=== PATIENT | female | born 1960 | race Caucasian/White ===

== ENCOUNTER 2018-07-17 06:41 | Emergency (ER) | payer MEDICAID ==
[2018-07-17 06:55] VITALS: O2SAT 98
[2018-07-17 09:46] VITALS: BP 133/87; PULSE 84; RESP 18; TEMP 99.6
--- NOTE | 2018-07-17 09:49 | C.PDOC ---
History Of Present Illness 58 year old female presents to the ED complaining of cough, nasal congestion, rhinorrhea, fever and bodyaches for one day. Denies any nausea, vomiting, chest pain or shortness of breath. Denies any sick contacts or recent travels. HPI: Influenza Time Seen by Provider: 07/17/18 07:18 Chief Complaint: Flu-like Symptoms History Per: Patient Exam Limitations: no limitations Have you had recent travel within the past 21 days to any of the following countries: [place], [place], [place] or [place]?: No Onset/Duration Of Symptoms: Days (1) Symptoms include: fever, headache, bodyaches, cough, nasal congestion. denies: diarrhea, chest pain Sick Contacts (Context): None Past Medical History Reviewed: Historical Data, Nursing Documentation, Vital Signs Vital Signs: Last Vital Signs Temp 99.9 F H 07/17/18 06:51 Pulse 104 H 07/17/18 06:51 Resp 20 07/17/18 06:51 BP 152/85 H 07/17/18 06:51 Pulse Ox 98 07/17/18 06:51 - Medical History PMH: Hypercholesterolemia Surgical History: Cholecystectomy Family History: States: No Known Family Hx - Social History Hx Alcohol Use: No Hx Substance Use: No - Immunization History Hx Tetanus Toxoid Vaccination: No Hx Influenza Vaccination: No Hx Pneumococcal Vaccination: No Review Of Systems Except As Marked, All Systems Reviewed And Found Negative. Constitutional: Positive for: Fever, Other (myalgias ) ENT: Positive for: Nose Discharge, Nose Congestion. Negative for: Ear Pain, Throat Pain Cardiovascular: Negative for: Chest Pain Respiratory: Positive for: Cough. Negative for: Shortness of Breath Gastrointestinal: Negative for: Nausea, Vomiting, Abdominal Pain, Diarrhea Physical Exam - Physical Exam Appears: Non-toxic, No Acute Distress Skin: Warm, Dry, No Rash Head: Normacephalic Eye(s): bilateral: Normal Inspection Ear(s): Bilateral: Normal Nose: Normal Oral Mucosa: Moist Tongue: Normal Appearing Lips: Normal Appearing Teeth: Normal Dentition Gingiva: Normal Appearing Throat: Normal, No Erythema, No Exudate Neck: Supple Chest: Symmetrical Cardiovascular: Rhythm Regular Respiratory: Normal Breath Sounds, No Rales, No Rhonchi, No Wheezing Gastrointestinal/Abdominal: Soft, No Tenderness Neurological/Psych: Oriented x3, Normal Speech Gait: Steady - ECG O2 Sat by Pulse Oximetry: 98 (RA) Pulse Ox Interpretation: Normal - Radiology X-Ray: Viewed By Me, Read By Radiologist X-Ray Interpretation: No Acute Disease - Progress ED Course And Treament: CXR ordered and reviewed - no pulmonary disease. Influenze A B stat ordered - negative, however s/s very suspicious to Influenza. Patient treated with Tamiflu 75mg PO and is stable to be d/c home with PMD follow up. Condition: Improved Disposition - Disposition Referrals: Betzy Aguilar [Medical Doctor] - Disposition: HOME/ ROUTINE Disposition Time: 09:45 Condition: STABLE Additional Instructions: Follow up with PMD within 1-2 days. Return to ED if feel worse. Prescriptions: Fluticasone Propionate [Flonase] 1 spr NS BID #1 spr Ibuprofen [Motrin Tab] 400 mg PO Q8 #30 tab Oseltamivir Cap [Tamiflu] 75 mg PO BID #9 cap Benzonatate [Tessalon Perles] 2 tab PO TID #60 sgl Instructions: Flu, Adult (DC) Forms: Certain (Gabonese) Print Language: FIJIAN - Clinical Impression Clinical Impression: Influenza-like illness - PA / VERIFICATION MANAGER / Resident Statement MD/DO has reviewed & agrees with the documentation as recorded. - Scribe Statement The provider has reviewed the documentation as recorded by the Scribe Spring Gordon All medical record entries made by the Wangibe were at my direction and persona lly dictated by me. I have reviewed the chart and agree that the record accurately reflects my personal performance of the history, physical exam, medical decision making, and the department course for this patient. I have also personally directed, reviewed, and agree with the discharge instructions and disposition.
--- NOTE | 2018-07-17 10:12 | RAD ---
Date of service: 07/17/2018 HISTORY: Fever and cough COMPARISON: No prior. TECHNIQUE: Chest PA and lateral FINDINGS: LINES AND TUBES: None. LUNG AND PLEURA: The lungs are well inflated and clear. No pleural effusion or pneumothorax. HEART AND MEDIASTINUM: The heart is not enlarged. No aortic atherosclerotic calcifications present. The hilar and mediastinal contours are within normal limits. SKELETAL STRUCTURES: The bony structures are within normal limits for the patient's age. VISUALIZED UPPER ABDOMEN: Normal. OTHER FINDINGS: None. IMPRESSION: No active pulmonary disease.
== END 2018-07-17 10:15 | disposition home or self-care (01) ==
LOC: C.ER 06:41
DX: J11.1 Influenza due to unidentified influenza virus with other respiratory manifestations (principal)

== ENCOUNTER 2018-07-17 13:49 | Emergency (ER) | payer MEDICAID, MEDICARE ==
[2018-07-17 14:08] VITALS: BP 124/84; PULSE 102; RESP 18; TEMP 99.1; O2SAT 95
--- NOTE | 2018-07-17 15:34 | C.PDOC ---
History Of Present Illness 58 year old female presents to the emergency department requesting a prescription for different medication. Patient was seen earlier in the ED today where she was given a prescription for Tamiflu and Tessalon Perles. Patient states that she took one tablet of Tessalon Perles and vomited, and states that she went to 5 pharmacies and none of them had Tamiflu. Chief Complaint (Nursing): Medical Clearance History Per: Patient History/Exam Limitations: no limitations Onset/Duration Of Symptoms: Hrs Current Symptoms Are (Timing): Still Present Past Medical History Reviewed: Historical Data, Nursing Documentation, Vital Signs Vital Signs: Last Vital Signs Temp 99.1 F 07/17/18 14:04 Pulse 102 H 07/17/18 14:04 Resp 18 07/17/18 14:04 BP 124/84 07/17/18 14:04 Pulse Ox 95 07/17/18 14:04 - Medical History PMH: Hypercholesterolemia Surgical History: Cholecystectomy Family History: States: No Known Family Hx - Social History Hx Alcohol Use: No Hx Substance Use: No - Immunization History Hx Tetanus Toxoid Vaccination: No Hx Influenza Vaccination: No Hx Pneumococcal Vaccination: No Review Of Systems Except As Marked, All Systems Reviewed And Found Negative. Constitutional: Negative for: Fever, Chills Gastrointestinal: Positive for: Vomiting. Negative for: Nausea, Diarrhea Physical Exam - Physical Exam Appears: Non-toxic, No Acute Distress Skin: Normal Color, Warm, Dry Head: Atraumatic, Normacephalic Eye(s): bilateral: Normal Inspection, PERRL, EOMI Oral Mucosa: Moist Neck: Normal, Supple Chest: Symmetrical, No Tenderness Gastrointestinal/Abdominal: Soft, No Tenderness Neurological/Psych: Oriented x3, Normal Speech, Normal Cognition ED Course And Treatment O2 Sat by Pulse Oximetry: 95 (RA) Pulse Ox Interpretation: Normal Medical Decision Making Medical Decision Making: Plan: Patient recommended over the counter medication Delsym DM or Mucinex. Patient recommended to f/u with PMD. Disposition Counseled Patient/Family Regarding: Diagnosis, Need For Followup - Disposition Disposition: HOME/ ROUTINE Disposition Time: 15:33 Condition: STABLE Additional Instructions: BEATRIZ CRUZ, thank you for letting us take care of you today. Your provider was Erin Busch MD and you were treated for VOMITING. The emergency medical care you received today was directed at your acute symptoms. If you were prescribed any medication, please fill it and take as directed. It may take several days for your symptoms to resolve. Return to the Emergency Department if your symptoms worsen, do not improve, or if you have any other problems. Please contact your doctor for a follow up appointment in 1-2 days. Bring any paperwork you were given at discharge with you along with any medications you are taking to your follow up visit. Our treatment cannot replace ongoing medical care by a primary care provider outside of the emergency department. Thank you for allowing the [facility] team to be part of your care today. Instructions: Flu, Adult (DC) Forms: Gen Discharge Inst Ethiopian, [employer] (Ethiopian) Print Language: UZBEK - POA Present On Arrival: None - Clinical Impression Clinical Impression: Influenza-like illness - Scribe Statement The provider has reviewed the documentation as recorded by the Scribe (Tevin Cast) Provider Attestation: All medical record entries made by the Scribe were at my direction and personally dictated by me. I have reviewed the chart and agree that the record accurately reflects my personal performance of the history, physical exam, medical decision making, and the department course for this patient. I have also personally directed, reviewed, and agree with the discharge instructions and disposition.
== END 2018-07-17 15:48 | disposition home or self-care (01) ==
LOC: C.ER 13:49
DX: J11.1 Influenza due to unidentified influenza virus with other respiratory manifestations (principal)